=== PATIENT | female | born 1995 | race Caucasian/White ===

== ENCOUNTER 2021-02-27 18:21 | Emergency (ER) | payer OTHER ==
[~2021-02-27] VITALS: Ht 175.3 cm; Wt 104.3 kg
[2021-02-27 18:26] VITALS: BP 122/80
[2021-02-27] MEDS ORDERED: TRAM50TA2 PO (19:27)
[2021-02-27] MEDS ORDERED: IBUP-1955 PO (19:27)
== END 2021-02-27 19:43 | disposition home or self-care (01) ==
LOC: ER 18:21
DX: S92.024A Nondisplaced fracture of anterior process of right calcaneus, initial encounter for closed fracture (principal); Z60.2 Problems related to living alone; Z79.899 Other long term (current) drug therapy; W18.39XA Other fall on same level, initial encounter; Y93.89 Activity, other specified; Y92.89 Other specified places as the place of occurrence of the external cause; Y99.8 Other external cause status
CPT/HCPCS: 73610-TC